=== PATIENT | female | born 1985 | race Hispanic/Latino ===

== ENCOUNTER 2017-09-17 17:44 | Emergency (ER) | payer OTHER, MEDICARE ==
[2017-09-17 18:46] LABS: RAPID GROUP A STREP NEGATIVE (NEGATIVE)
== END 2017-09-17 19:04 | disposition home or self-care (01) ==
LOC: EDH 17:44
DX: J06.9 Acute upper respiratory infection, unspecified (principal); Z88.8 Allergy status to other drugs, medicaments and biological substances
CPT/HCPCS: 87804; 87880

== ENCOUNTER 2018-01-24 17:15 | Emergency (ER) | payer OTHER, MEDICARE | END 2018-01-24 18:11 | disposition home or self-care (01) | LOC: EDH 17:15 | DX: J06.9 Acute upper respiratory infection, unspecified (principal); Z88.8 Allergy status to other drugs, medicaments and biological substances; Z87.891 Personal history of nicotine dependence ==

== ENCOUNTER 2018-07-30 22:24 | Emergency (ER) | payer OTHER, MEDICARE ==
[2018-07-30] MEDS ORDERED: ONDANSETRON HCL 4 MG/2 ML VIAL ONE (22:50)
[2018-07-30] MEDS ORDERED: SODIUM CHLORIDE 0.9% 1000ML 1,000 ML IV ONE (22:50)
[2018-07-30 23:06] LABS: BASOPHILS % (AUTO) 0.9 % (0.0-5.0); EOSINOPHILS % (AUTO) 0.2 % (0.0-8.0); LYMPHOCYTES % (AUTO) 16.2 % (21.0-51.0); MEAN CORPUSCULAR HEMOGLOBIN 31.8 pg (27.0-33.0); MEAN CORPUSCULAR HGB CONC 34.1 g/dL (32.0-36.0); MEAN CORPUSCULAR VOLUME 93.2 fL (79-99); MONOCYTES % (AUTO) 7.7 % (3.0-13.0); PLATELET COUNT (AUTO) 292 K/uL (130-400); WHITE BLOOD COUNT (AUTO) 6.4 K/uL (4.8-10.8)
[2018-07-30 23:27] LABS: APPEARANCE,URINE Clear (CLEAR); BILIRUBIN,URINE Negative (NEGATIVE); COLOR,URINE Yellow (YELLOW); GLUCOSE, URINE (UA) Negative (NEGATIVE); KETONES,URINE Negative (NEGATIVE); LEUKOCYTE ESTERASE ,URINE Negative (NEGATIVE); NITRATE,URINE Negative (NEGATIVE); OCCULT BLOOD,URINE Negative (NEGATIVE); PROTEIN,URINE Negative (NEGATIVE); UROBILINOGEN,URINE 0.2 mg/dL (0.2-1.0)
[2018-07-30 23:31] LABS: HCG,QUAL RESULT NEGATIVE (NEGATIVE)
[2018-07-30 23:39] LABS: CREATININE 0.5 mg/dL (0.5-1.5)
[2018-07-30 23:45] LABS: ALBUMIN 4.5 g/dL (3.5-5.0); BILIRUBIN,TOTAL 0.6 mg/dL (0.2-1.0); TOTAL PROTEIN, SERUM 8.6 g/dL (6.0-8.3)
== END 2018-07-31 00:21 | disposition home or self-care (01) ==
LOC: EDH 22:24
DX: A09 Infectious gastroenteritis and colitis, unspecified (principal); E86.0 Dehydration; Z90.710 Acquired absence of both cervix and uterus; Z88.8 Allergy status to other drugs, medicaments and biological substances; Z72.0 Tobacco use
CPT/HCPCS: 36415; 80053; 81003; 81025; 82550; 83690; 85025; 87804 ×2; 96361; 96374; 99283; J2405; J7030

== ENCOUNTER 2020-06-29 00:30 | Emergency (ER) | payer OTHER, MEDICARE ==
[2020-06-29 01:37] LABS: BASOPHILS % (AUTO) 0.7 % (0.0-5.0); EOSINOPHILS % (AUTO) 0.5 % (0.0-8.0); LYMPHOCYTES % (AUTO) 23.4 % (21.0-51.0); MEAN CORPUSCULAR HEMOGLOBIN 32.3 pg (27.0-33.0); MEAN CORPUSCULAR HGB CONC 35.3 g/dL (32.0-36.0); MEAN CORPUSCULAR VOLUME 91.6 fL (79-99); MONOCYTES % (AUTO) 7.9 % (3.0-13.0); PLATELET COUNT (AUTO) 293 K/uL (130-400); RED BLOOD CELL COUNT(AUTO) 3.93 MIL/uL (4.00-5.50); RED CELL DISTRIBUTION WIDTH 11.6 % (11.0-15.5); WHITE BLOOD COUNT (AUTO) 4.4 K/uL (4.8-10.8)
[2020-06-29 01:44] LABS: RAPID GROUP A STREP NEGATIVE (NEGATIVE)
[2020-06-29 01:48] LABS: CREATININE 0.6 mg/dL (0.5-1.5); POTASSIUM 3.2 mmol/L (3.5-5.1)
[2020-06-29] MEDS ORDERED: ONDANSETRON HCL 4 MG/2 ML VIAL ONE (01:50)
[2020-06-29 01:52] LABS: ALBUMIN 4.6 g/dL (3.5-5.0); TOTAL PROTEIN, SERUM 7.8 g/dL (6.0-8.3)
[2020-06-29 02:09] LABS: APPEARANCE,URINE Clear (CLEAR); BILIRUBIN,URINE Negative (NEGATIVE); COLOR,URINE Yellow (YELLOW); GLUCOSE, URINE (UA) Negative (NEGATIVE); KETONES,URINE Negative (NEGATIVE); LEUKOCYTE ESTERASE ,URINE Negative (NEGATIVE); NITRATE,URINE Negative (NEGATIVE); OCCULT BLOOD,URINE Negative (NEGATIVE); PROTEIN,URINE Negative (NEGATIVE); UROBILINOGEN,URINE 0.2 mg/dL (0.2-1.0)
[2020-06-29] MEDS ORDERED: SODIUM CHLORIDE 0.9% 1000ML 1,000 ML IV ONE (02:19)
[2020-06-29] MEDS ORDERED: KETOROLAC TROMETHAMINE 30MG/ML ONE (02:19)
[2020-06-29] MEDS ORDERED: POTASSIUM CHLORIDE 20 MEQ ERTAB PO ONE (03:14)
[2020-06-29] MEDS ORDERED: DiphenhydrAMINE HCL 50 MG/ML VIAL ONE (03:22)
== END 2020-06-29 04:49 | disposition home or self-care (01) ==
LOC: EDH 00:30
DX: B34.8 Other viral infections of unspecified site (principal); E86.0 Dehydration; E87.6 Hypokalemia; Z20.828 Contact with and (suspected) exposure to other viral communicable diseases; Z90.49 Acquired absence of other specified parts of digestive tract; Z90.710 Acquired absence of both cervix and uterus; Z72.0 Tobacco use; Z88.1 Allergy status to other antibiotic agents
CPT/HCPCS: 36415; 80053; 81003; 83690; 85025; 87426; 87804 ×2; 87880; 96361; 96374; 96375; 99284; J1200; J1885; J2405; J7030; U0003

== ENCOUNTER 2024-09-28 18:42 | Emergency (ER) | payer MEDICAID, MEDICARE, OTHER ==
[~2024-09-28] VITALS: Ht 157.5 cm; Wt 49.0 kg
[2024-09-28 20:19] VITALS: BP 120/88; PULSE 66; RESP 20; TEMP 98.6; O2SAT 100
[2024-09-28 20:34] LABS: RAPID GROUP A STREP negative (NEGATIVE)
[2024-09-28 20:40] LABS: SARS-CoV-2, RNA, NAAT NEGATIVE SARS CoV-2 (NEGATIVE)
--- NOTE | 2024-09-28 20:43 | ERN ---
ED Note History of Present Illness Stated Complaint: LOW BLOOD SUGAR, DIZZY Chief Complaint: Dizzy/Light Headed Time Seen by MD: 18:45 Time Seen by Midlevel: 18:50 Dictation: 39-year-old female with no past medical history coming in complaining of cough, congestion, vomiting and sweating while she was at work. 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 Allergies: Coded Allergies: No Known Drug Allergies (Unverified Allergy, Unknown, 06/29/20) Past Medical History Past Medical History: No Pertinent History Surgical History: None Review of System Dictation Constitutional: Negative for fever,chills, and weight loss Eyes: Negative for injury, pain,redness, and discharge ENT: Negative for injury,pain or swelling Cardiovascular: Negative for chest pain, palpitations, and edema Respiratory: Negative for shortness of breath, complaining of cough congestion Abdomen/GI: Negative for abdominal pain, nausea, positive vomiting, no diarrhea, and no constipation Back: Negative for injury and pain : Negative for injury, bleeding and discharge MS/Extremity: Negative for injury and deformity Skin: Negative for rash, and discoloration Neuro: Negative for headache, weakness, numbness, tingling, and seizure Psych: Negative for suicide ideation, homicidal ideation, and hallucinations Review of Systems: was completed Initial Vital Sign VS Vital Signs Date Time Temp Pulse Resp B/P (MAP) Pulse Ox O2 Delivery O2 Flow Rate FiO2 09/28/24 20:03 59 20 150/106 Room Air 09/28/24 20:19 98.6 100 0 21 Physical Exam Dictation General: awake, alert, NAD Head/Face: Normocephalic, atraumatic Eyes: PERRL, EOMI, vision at baseline ENT: oral cavity clear, TMs clear, no signs of infection Neck: Trachea midline, supple, no nuchal rigidity Cardiovascular: RRR, normal S1/S2, No MRGs, no JVD Respiratory: CTAB, no respiratory distress, No rales or wheezes Abdomen: Soft, non-tender, non-distended, normal bowel sounds, no guarding or rebound. Skin: Warm, dry, normal turgor, no rash MS/Extremity: Pulses equal, no cyanosis, neurovascular intact, FROM Neuro: COAx4, GCS 15, strength 5/5, CN 2-12 intact, normal cerebellar exam, normal gait, Psych: Normal behavior, mood, and affect normal Results (Laboratory/Radiology) Laboratory/Radiology Laboratory Tests Test 09/28/24 20:04 09/28/24 20:06 Whole Blood Glucose 128 MG/DL (70-110) H Influenza Type A Antigen Negative For Type A Influenza Type B Antigen Negative For Type B SARS-CoV-2, RNA, NAAT NEGATIVE SARS CoV-2 Group A Streptococcus Rapid negative (NEGATIVE) Labs Reviewed?: Yes ED Course ED Course Orders Procedure Category Date Status Time Rapid (Group A Strep) LAB 09/28/24 Complete 20:03 Covid Rna Naat LAB 09/28/24 Complete 20:03 Influenza Type A & B, LAB 09/28/24 Complete Rapid 20:03 Vital Signs Date Time Temp Pulse Resp B/P (MAP) Pulse Ox O2 Delivery O2 Flow Rate FiO2 09/28/24 20:19 98.6 66 20 120/88 100 Room Air* 0 21 09/28/24 20:03 59 20 150/106 Room Air Medical Decision Making MDM MDM: 39-year-old female with no past medical history coming in complaining of cough, congestion, vomiting and sweating while she was at work. 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 Swabs are negative for COVID, flu and strep. With a likely patient has viral syndrome or could be too early to detect any viruses. Discussed findings with the patient. Educated patient she needs to follow up with PCP in 1-2 days, take [id number] symptomatic control like Mucinex, Sudafed for cough Tylenol or Motrin for fever control. Patient verbalized understanding, and also educated on signs and symptoms of when to return back to the ER like shortness a breath, chest pain, unable to keep any fluids down. Patient verbalized understanding, answered all questions. Differential diagnosis: Influenza, COVID, strep, viral syndrome, gastroenteritis Rationale: Tests considered and ordered secondary to shared decision making include: Previous outside records reviewed: Old ER visits. Risk of complication and/or morbidity or mortality of patient management: None Medications-Per medication reconciliation Need for hospitalization: Patient does not meet criteria for hospitalization. Need for emergency major/minor surgery: No There are no social concerns with this patient. Prescription drug management Prescriptions will include symptomatic care Patient's prior external medical records from other ER visits were reviewed by me as indicated. Prior testing and results from previous visits were reviewed. Prior tests were taken into account with medical decision making and resource utilization, independent historian/historians were used to obtain complete medical history. I independently interpreted the test that were performed, results were reviewed by me and considered findings on radiology if ordered. Medical management and examination interpretation discussions were had by me with other qualified healthcare professionals as indicated for the patient's care. DX & DISP Disposition: Discharge Departure Impression: Primary Impression: Viral syndrome Condition: Stable Scripts Ondansetron (Ondansetron Odt) 4 Mg Tab.rapdis 4 MG PO Q6HPRN PRN for nausea, #16 TAB 0 Refills Prov: BORIS SANCHEZ GEOLOGICAL TECHNICAL OFFICER 09/28/24 Additional Instructions: All your swabs are negative. More than likely this is viral syndrome. Take [id number] medications to treat your symptoms like Motrin and Tylenol for fever and body aches. Mucinex or Sudafed for congestion. You can take [id number]-[id number] Robitussin or Tessalon Perles for cough. Follow up with PCP in 1-2 days. Return to the emergency room if you start to lip develop any shortness a breath, and unable to keep any fluids down. Referrals: MARTINEZ COTA MD (PCP) Time of Disposition: 20:55 I have reviewed the case, and I agree with, Diagnosis and Plan BORIS SANCHEZ NP Sep 28, 2024 20:43
[2024-09-28 20:44] LABS: INFLUENZA TYPE A Negative For Type A (NEGATIVE); INFLUENZA TYPE B Negative For Type B (NEGATIVE)
[2024-09-28] MEDS ORDERED: ONDA-243 PO (20:57)
== END 2024-09-28 21:08 | disposition home or self-care (01) ==
LOC: EDH 18:42
DX: B34.9 Viral infection, unspecified (principal); Z20.822 Contact with and (suspected) exposure to COVID-19
CPT/HCPCS: 82948; 87635; 87804; 87880; 99283